=== PATIENT | male | born 1940 | race Caucasian/White ===

== ENCOUNTER 2016-09-16 18:35 | Emergency (ER) | payer MEDICARE, BC ==
[2016-09-16] MEDS ORDERED: LIDOCAINE HCL 1% MPF SOL INFIL ONE (18:46)
[2016-09-16] MEDS ORDERED: LIDOCAINE HCL 1% MPF SOL ONE (18:47)
[2016-09-16 19:11] VITALS: RESP 20; O2SAT 95
[2016-09-16] MEDS ORDERED: BACITRACIN 500 U/GM OIN TOP ONE ×2 (19:19→19:20)
[2016-09-16 19:35] VITALS: BP 154/79; PULSE 60; TEMP 97.4
== END 2016-09-16 19:40 | disposition home or self-care (01) | DRG 605 ==
LOC: ED 18:35
DX: S61.210A Laceration without foreign body of right index finger without damage to nail, initial encounter (principal); W26.0XXA Contact with knife, initial encounter
CPT/HCPCS: 99283; J2001

== ENCOUNTER 2016-11-24 09:49 | Outpatient (CLI) | payer MEDICARE, BC ==
[2016-09-16 19:11] VITALS: O2SAT 95
== END 2016-11-24 09:50 | disposition home or self-care (01) | DRG 556 ==
LOC: CONVCARE 09:49
PROVIDERS: ATTEND Orthopaedic Surgery
DX: M25.812 Other specified joint disorders, left shoulder (principal)
CPT/HCPCS: 73030

== ENCOUNTER 2017-04-05 10:50 | Outpatient (CLI) | payer MEDICARE, BC ==
[2016-09-16 19:11] VITALS: O2SAT 95
== END 2017-04-05 10:51 | disposition home or self-care (01) | DRG 561 ==
LOC: CONVCARE 10:50
PROVIDERS: ATTEND Orthopaedic Surgery
DX: Z47.1 Aftercare following joint replacement surgery (principal); Z96.612 Presence of left artificial shoulder joint
CPT/HCPCS: 73030

== ENCOUNTER 2017-06-25 06:43 | Day surgery (SDC) | payer MEDICARE, BC ==
[2017-06-25] MEDS ORDERED: PROPOFOL 500 MG/50 ML EMU IV ONE (07:27)
[2017-06-25] MEDS ORDERED: LIDOCAINE HCL 1% MPF SOL ONE (07:27)
[2017-06-25 09:35] VITALS: TEMP 97.4
[2017-06-25 10:51] VITALS: BP 141/59; PULSE 76; RESP 18; O2SAT 94
== END 2017-06-25 10:35 | disposition home or self-care (01) | DRG 951 ==
LOC: SURG 06:43
PROVIDERS: ATTEND Surgery
DX: Z12.11 Encounter for screening for malignant neoplasm of colon (principal); D12.2 Benign neoplasm of ascending colon; D50.9 Iron deficiency anemia, unspecified; Z80.0 Family history of malignant neoplasm of digestive organs; D12.3 Benign neoplasm of transverse colon
CPT/HCPCS: J2001; J2704

== ENCOUNTER 2018-04-10 17:17 | Emergency (ER) | payer MEDICARE, OTHER ==
[2018-04-10] MEDS ORDERED: ASPIRIN 81 MG CHEWABLE CTB ONE (17:49)
[2018-04-10] MEDS: ASPIRIN 81 MG CHEWABLE CTB PO ONE (17:50)
[2018-04-10] MEDS: SODIUM CHLORIDE 0.9% FLUSH 10 ML SOL IV PRN (17:50)
[2018-04-10 17:54] LABS: BASOPHILS % (AUTO) 1 % (0-3); EOSINOPHILS % (AUTO) 0 % (0-9); HEMATOCRIT 29 % (39-53); HEMOGLOBIN 9.5 gm/dl (13.5-17.7); LYMPHOCYTES % (AUTO) 9.4 % (10-50); MEAN CORPUSCULAR HEMOGLOBIN 31.1 pg (27.0-32.0); MEAN CORPUSCULAR HGB CONC 33.1 gm/dl (32.0-36.0); MEAN CORPUSCULAR VOLUME 94 fL (80-100); MONOCYTES % (AUTO) 8.6 % (0-12); NEUTROPHILS % (AUTO) 80.7 % (37-80)
[2018-04-10 18:01] VITALS: TEMP 100.2
[2018-04-10 18:11] LABS: ALBUMIN 3.3 gm/dl (3.4-5.0); BILIRUBIN,TOTAL 1.6 mg/dl (0.2-1.0); CALCIUM 8.8 mg/dl (8.5-10.1); CARBON DIOXIDE 25.8 mEq/L (21-32); CREATININE 1.6 mg/dl (0.80-1.30); POTASSIUM 3.9 mMol/L (3.5-5.1); TOTAL PROTEIN 7.5 gm/dl (6.4-8.2)
[2018-04-10 18:23] LABS: INFLUENZA A POSITIVE (NEGATIVE); INFLUENZA B NEGATIVE (NEGATIVE)
[2018-04-10] MEDS ORDERED: FENTANYL 100MCG/2ML SOL ONE (18:26)
[2018-04-10] MEDS: FENTANYL 100MCG/2ML SOL IV ONE (18:27)
[2018-04-10 18:32] LABS: TROP I 48.898 ng/ml (0.000-0.056)
[2018-04-10 18:34] LABS: POIKILOCYTOSIS MOD AMT
[2018-04-10 18:35] LABS: ANISOCYTOSIS MOD AMT; OVALOCYTES PRESENT; TEAR DROP CELLS PRESENT
[2018-04-10 18:41] VITALS: BP 107/69
[2018-04-10 18:42] LABS: INR 1.87 (0.86-1.12)
[2018-04-10] MEDS ORDERED: HEPARIN SODIUM 5000 U/ML SOL ONE ×2 (18:45→18:47)
[2018-04-10] MEDS: HEPARIN SODIUM 5000 U/ML 25,000 U in DEXTROSE 250 ML 250 ML IV PRN (19:02)
[2018-04-10 19:05] VITALS: PULSE 91; RESP 21; O2SAT 95
== END 2018-04-10 19:02 | disposition short-term general hospital (02) | DRG 282 ==
LOC: ED 17:17
DX: I21.4 Non-ST elevation (NSTEMI) myocardial infarction (principal)
CPT/HCPCS: 71275; 80053; 84484; 85025; 85378; 85610; 85730; 87804; 96374; 99291; J1644; J3010

== ENCOUNTER 2018-04-22 14:25 | Emergency (ER) | payer MEDICARE, OTHER ==
[2018-04-22] MEDS ORDERED: CODEINE/GUAIFENESIN 5 ML ML PO ONE ×2 (14:41→14:55)
[2018-04-22] MEDS ORDERED: ACETAMINOPHEN 500 MG 500 MG TAB PO ONE (14:49)
[2018-04-22] MEDS ORDERED: ACETAMINOPHEN 500 MG 500 MG TAB ONE (14:53)
[2018-04-22 14:55] LABS: INR 1.29 (0.86-1.12)
[2018-04-22] MEDS ORDERED: CODEINE/GUAIFENESIN 5 ML ML ONE ×2 (14:57)
[2018-04-22] MEDS ORDERED: SODIUM CHLORIDE 0.9% 1000ML 1,000 ML IV SCH (15:00)
[2018-04-22 15:21] LABS: INFLUENZA A NEGATIVE (NEGATIVE); INFLUENZA B NEGATIVE (NEGATIVE)
[2018-04-22] MEDS ORDERED: CEFTRIAXONE 1 GM PDS 1 GM in SODIUM CHLORIDE 0.9% 50 ML 50 ML IV ONE (15:36)
[2018-04-22] MEDS ORDERED: AZITHROMYCIN 500 MG PDS 500 MG in SODIUM CHLORIDE 0.9% 250 ML 250 ML IV ONE (15:36)
[2018-04-22] MEDS ORDERED: CEFTRIAXONE 1 GM PDS ONE (15:36)
[2018-04-22 15:38] LABS: CALCIUM 8.8 mg/dl (8.5-10.1); CARBON DIOXIDE 19.9 mEq/L (21-32); CREATININE 2.41 mg/dl (0.80-1.30); POTASSIUM 3.5 mMol/L (3.5-5.1)
[2018-04-22] MEDS ORDERED: AZITHROMYCIN 500 MG PDS IV ONE (15:43)
[2018-04-22] MEDS ORDERED: HEPARIN SODIUM 5000 U/ML SOL IV ONE (15:43)
[2018-04-22] MEDS ORDERED: HEPARIN SODIUM 5000 U/ML 25,000 U in DEXTROSE 250 ML 250 ML IV PRN (15:44)
[2018-04-22] MEDS ORDERED: HEPARIN SODIUM 5000 U/ML SOL ONE ×2 (15:50→15:54)
[2018-04-22 16:34] VITALS: BP 92/50; PULSE 100; RESP 24; TEMP 100.6; O2SAT 93
== END 2018-04-22 16:24 | disposition short-term general hospital (02) | DRG 302 ==
LOC: ED 14:25
DX: I25.10 Atherosclerotic heart disease of native coronary artery without angina pectoris (principal); J18.1 Lobar pneumonia, unspecified organism; R91.8 Other nonspecific abnormal finding of lung field; R50.9 Fever, unspecified; R06.02 Shortness of breath
CPT/HCPCS: 36415; 80048; 83880; 84484; 85610; 87040; 87070; 87205; 87804; 93005; 96365; 96374; 99070; 99291; J0456; J0696; J1644; A9270-GY